=== PATIENT | male | born 2005 | race Caucasian/White ===

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

== ENCOUNTER → 2023-03-09 14:30 | Outpatient (CLI) | payer OTHER, SELFPAY ==
--- NOTE | ~2023-03-09 | XR_ITS ---
XR abdomen/kub 1V DATE: 03/09/2023 14:49 INDICATION: Constipation TECHNIQUE: 2 AP views COMPARISON: 08/12/2022 CT abdomen pelvis FINDINGS: There is moderately prominent of fecal material in the ascending colon and hepatic flexure. No bowel obstruction is evident. No visceromegaly or significant abnormal calcification is detected. IMPRESSION: Nonspecific abdomen Reviewed, dictated and finalized at Location A. Reviewed, dictated and finalized at location A. LEAD BURNER IMPRESSION: Nonspecific abdomen
== END ==
PROVIDERS: PCP Nurse Practitioner Family; Visit Provider Nurse Practitioner Family
DX: K59.00 Constipation, unspecified (principal)
CPT/HCPCS: 74018

== ENCOUNTER 2024-06-13 16:10 | Outpatient (CLI) | payer OTHER, SELFPAY ==
--- OUTSIDE RECORDS SUMMARY | 2024-06-13 16:14 | XMS_ITS | Clinical Summary ---
Author Organization [facility] Address [address] [place] [address] Care Team Providers Care Mortar Mixer Operator Name Role Phone Kelton Mendiola MD Primary Care Provider [phone] Source Comments [facility],non-owned Affiliates and Associated Physician Practices is amultiple site organization consisting of ambulatory clinics and hospital sitesin [place], [place], [place] and [place]. This disclosure is being madepursuant to the Care Everywhere program and may not contain all information available regarding this patient. Last updated 17.[facility] [employer] Social History Tobacco Use Types Packs/Day Years Used Date Smoking Tobacco: Never Assessed Sex and Gender Information Value Date Recorded Sex Assigned at Not on file Gender Identity Not on file Sexual Orientation Not on file Plan of Treatment Health Maintenance Due Date Last Done Comments HIV SCREENING 11/24/2018 HPV VACCINE (1 - Male 3-dose series) 11/24/2018 MENINGOCOCCAL (Group B) VACC INE SHARED DECISION-MAKING (1 of 2 - Standard) 2019 HEPATITIS C SCREENING 11/20/2021 DTAP/TDAP/TD VACCINES (1 - Tdap) 11/24/2022 HEPATITIS B VACCINE (1 of 3 - 19+ 3-dose series) 11/24/2022 COVID-19 VACCINE (1 - 2023-2 5 season) 2023 INFLUENZA VACCINE (#1) 2023 DEPRESSION SCREENING 03/19/2024 ZOSTER VACCINE (1 of 2) 11/24/2053 HIB VACCINE Aged Out No longer eligi ble based on patient's age to complete this topic MENINGOCOCCAL GROUPS A/C/Y/W VACCINE Aged Out No longer eligible b ased on patient's age to complete this topic PNEUMOCOCCAL VACCINE Aged Out No long er eligible based on patient's age to complete this topic Care Teams Mortar Mixer Operator Relationship Specialty Start Date End Date Kelton Mendiola MD [address] [place] [address] PCP - General 04/27/09
[2024-06-13 16:49] LABS: Hematocrit 46.1 % (42.0-52.0); Hemoglobin 15.3 g/dL (14.0-18.0); Mean Corpuscular HGB Conc 33.2 g/dl (32-36); Mean Corpuscular Hemoglobin 28.8 pg (26-34); Mean Corpuscular Volume 86.7 fl (80-100); Mean Platelet Volume 10.3 fl (7.4-10.4); Platelet Count Result 284 k/mm3 (150-375); Red Blood Count 5.32 M/mm3 (4.6-6.20); Red Cell Distribution Width 12.1 % (11.5-14.5); White Blood Count 7.7 K/mm3 (4.5-10.0)
[2024-06-13 17:02] LABS: Alanine Aminotransferase 75 U/L (6-50); Albumin Level 4.9 g/dL (3.5-5.1); Alkaline Phosphatase 72 U/L (38-126); Amylase 63 U/L (30-110); Anion Gap 12 mmol/L (4-12); Aspartate Amino Transferase 33 U/L (17-59); Bilirubin,Total 0.4 mg/dL (0.2-1.3); Blood Urea Nitrogen 21 mg/dL (9-20); Calcium 9.6 mg/dL (8.4-10.2); Carbon Dioxide 24 mmol/L (22-30); Chloride 106 mmol/L (98-107); Estimated Glomerular Filt Rate > 60; Glucose 111 mg/dL (65-110); Lipase 69 U/L (23-300); Sodium 142 mmol/L (137-145)
== END 2024-06-13 16:11 | disposition home or self-care (01) ==
PROVIDERS: PCP Family Medicine; Visit Provider Nurse Practitioner Family
DX: R10.84 Generalized abdominal pain (principal); R19.5 Other fecal abnormalities; K92.0 Hematemesis; R19.4 Change in bowel habit
CPT/HCPCS: 36415; 80048; 80076; 82150; 83690; 85027

== ENCOUNTER 2024-06-30 11:12 | Outpatient (CLI) | payer OTHER, SELFPAY ==
--- NOTE | ~2024-06-30 | US_ITS ---
Limited Abdominal Sonogram: Real-time sonographic imaging of the right upper quadrant was performed. Clinical History: Common bile duct stones Findings: The liver appears echogenic, with no evidence of mass lesion or bile duct dilatation. Main portal vein demonstrates normal direction of flow. The gallbladder is well distended, and appears no rmal with no evidence of gallstone or wall thickening. The common bile duct measures 5 mm. The visua lized pancreas, aorta, and IVC are unremarkable. Impression: Diffuse fatty infiltration of the liver. Reviewed, dictated and finalized at location M. Impression: Diffuse fatty infiltration of the liver.
== END 2024-06-30 11:13 | disposition home or self-care (01) ==
LOC: MICIMG 11:13
PROVIDERS: PCP Family Medicine; Visit Provider Nurse Practitioner Family
DX: R19.5 Other fecal abnormalities (principal); R19.4 Change in bowel habit; K76.0 Fatty (change of) liver, not elsewhere classified
CPT/HCPCS: 76705

== ENCOUNTER 2024-10-23 03:21 | Day surgery (SDC) | payer OTHER, SELFPAY ==
--- OUTSIDE RECORDS SUMMARY | 2024-10-23 03:24 | XMS_ITS | Clinical Summary ---
Author Organization [facility] Address [address] [place] [address] Care Team Providers Care Take Up Supervisor Name Role Phone Kelton Mendiola MD Primary Care Provider [phone] Source Comments [facility],non-owned Affiliates and Associated Physician Practices is amultiple site organization consisting of ambulatory clinics and hospital sitesin [place], [place], [place] and [place]. This disclosure is being madepursuant to the Care Everywhere program and may not contain all information available regarding this patient. 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 Gender Identity Not on file Sexual Orientation [...] VACCINE (1 - 2023-2 5 season) 2023 DEPRESSION SCREENING 03/19/2024 INFLUENZA VACCINE (#1) 2024 ZOSTER VACCINE (1 of 2) 11/24/2053 HIB VACCINE Aged Out No longer eligi ble based on patient's age to complete this topic MENINGOCOCCAL GROUPS A/C/Y/W VACCINE Aged Out No longer eligible b ased on patient's age to complete this topic PNEUMOCOCCAL VACCINE Aged Out No long er eligible based on patient's age to complete this topic Care Teams Take Up Supervisor Relationship Specialty Start Date End Date Kelton Mendiola MD [address] [place] [address] PCP - General 04/27/09
[2024-10-23 07:19] VITALS: BP 145/87; PULSE 99; RESP 18; TEMP 36.8; O2SAT 100
[2024-10-23] MEDS: LACTATED RINGERS 1,000 ML 150 ML IV CONT (07:29)
--- NOTE | 2024-10-23 07:43 | WPDANESEPPF ---
Anes - Initial Pre Proc Eval Procedure: Operation Date: 10/23/24 08:30 Proposed Procedures p Esophagogastroduodenoscopy & Colonoscopy - Ezekiel Salazar MD Date/Time: 10/23/24 07:43 Surgeon: Ezekiel Salazar MD Pre Op Diagnosis: Hematemesis, Functional diarrheaGeneralized abdomi Patient Data Age: 18 Gender: M Height: Weight: 142.1 kg Last Vital Signs Temp 36.8 C 10/23/24 07:19 Pulse 99 10/23/24 07:19 Resp 18 10/23/24 07:19 BP 145/87 H 10/23/24 07:19 Pulse Ox 100 10/23/24 07:19 O2 Del Method Room Air 10/23/24 07:19 Allergies Allergy/AdvReac Type Severity Reaction Status Date / Time No Known Allergies Allergy Verified 10/23/24 07:19 Home Medications ?Medication ?Instructions ?Recorded ?Confirmed ?Type omeprazole 40 mg capsule,delayed 40 mg PO DAILY #30 caps 09/04/24 10/08/24 Rx release Patient hx anesthesia problems: none Family hx anesthesia problems: none Results Review: All pre-operative results and documents have been reviewed as part of the pre-operative evaluation. [facility] Past Medical History Medical History Dyspepsia Diarrhea Abdominal pain Abrasion of arm, left Surgical History Surgical History Hx of tympanostomy tubes Family History Family History Father Hypertension Mother Hypertension Other Cerebrovascular accident Diabetes mellitus Family history of coronary artery disease Family history of lung cancer Family history of malignant neoplasm of breast Social History Social History Smoking status: Never smoker Second hand tobacco smoke exposure: No Alcohol intake: current Drinks per week: 1 Substance use: never Substance use type: does not use Do You Feel Safe in your Home?: Yes Lack of Transportation: No Lack of Food: Never True Current Housing: I Have Housing Concerned About Future Housing: No Difficulty Paying Gas/Electric Bills: No Difficulty Paying for Meds: No Currently Unemployed: No Education: High School Diploma/GED Difficulty w/ Childcare or Family Care: No Living arrangements: with family Occupation/Education: student 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 Gender identity (if verbalized by the patient): Male Spiritual care concerns: No Anes - Eval Final PreProcedure Day of Procedure 10/23/24 07:43 Patient weight: morbidly obese Heart: regular rate and rhythm Lungs: clear to auscultation Airway: Mallampati scale class II Neurological: alert and oriented Last oral intake: >/= 8 hours ASA classification: III Emergent: no Anesthetic plan: proceed Anesthesia type and monitoring: general GIVS and standard monitoring Results Review: All pre-operative results and documents have been reviewed as part of the pre-operative evaluation. Informed Consent: The patient's anesthetic plan and its attendant risks and benefits were discussed with the patient/family/POA. Questions were solicited and answers provided to the satisfaction of the patient/family/POA.
--- NOTE | 2024-10-23 08:21 | PM.HPGS ---
History of Present Illness History of Present Illness Consent: Risks, benefits, and alternatives have been discussed and questions answered. Patient agrees to proceed with procedure. Chief complaint: Hematemesis, Functional diarrheaGeneralized abdomi Narrative: Avel Durant is a 18 year old male here for first egd and colonoscopy, intermittent luq pain, also gerd Review of Systems Review of Systems: All systems reviewed & are unremarkable except as noted in HPI and below PMFSH Past Medical History Medical History Dyspepsia Diarrhea Abdominal pain Abrasion of arm, left Surgical History Surgical History Hx of tympanostomy tubes Family History Family History Father Hypertension Mother Hypertension Other Cerebrovascular accident Diabetes mellitus Family history of coronary artery disease Family history of lung cancer Family history of malignant neoplasm of breast Social History Social History Smoking status: Never smoker Second hand tobacco smoke exposure: No Alcohol intake: current Drinks per week: 1 Substance use: never Substance use type: does not use Do You Feel Safe in your Home?: Yes Lack of Transportation: No Lack of Food: Never True Current Housing: I Have Housing Concerned About Future Housing: No Difficulty Paying Gas/Electric Bills: No Difficulty Paying for Meds: No Currently Unemployed: No Education: High School Diploma/GED Difficulty w/ Childcare or Family Care: No Living arrangements: with family Occupation/Education: student 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 Gender identity (if verbalized by the patient): Male Spiritual care concerns: No Meds Home Medications and Allergies Home Medications ?Medication ?Instructions ?Recorded ?Confirmed ?Type omeprazole 40 mg capsule,delayed 40 mg PO DAILY #30 caps 09/04/24 10/08/24 Rx release Allergies Allergy/AdvReac Type Severity Reaction Status Date / Time No Known Allergies Allergy Verified 10/23/24 07:19 Vital Signs Vital Signs - 24 hr 10/23/24 07:19 Temperature 98.2 F Pulse Rate 99 Respiratory Rate 18 Blood Pressure 145/87 H Pulse Oximetry 100 Oxygen Delivery Room Air Exam Const: General: comfortable and no acute distress HENMT: Face/Nose/Sinus: Normal nares present Eyes: General: appearance normal, both eyes and all related structures Neck: Neck: no JVD Resp: Auscultation: clear to auscultation bilaterally Cardio: Rate: regular rate Rhythm: regular rhythm GI: Inspection: non-distended GI Palp: Yes Soft to palpation Skin: General skin exam: normal color Neuro: General: gait normal Speech: normal speech Extrem: General: normal to inspection Psych: Mental Status: mental status grossly normal Assessment and Plan Assessment and plan (1) Dyspepsia: Code(s): R10.13 - Epigastric pain Status: Acute Assessment and Plan: egd with bx (2) Abdominal pain: Qualifiers: Abdominal location: generalized Qualified Code(s): R10.84 - Generalized abdominal pain Code(s): R10.9 - Unspecified abdominal pain Status: Acute Assessment and Plan: colonoscopy
--- NOTE | 2024-10-23 08:31 | SUR.OPER ---
EGD [id number]. Colonoscopy start time 08.
--- NOTE | 2024-10-23 08:38 | S_PTH ---
PATIENT: Avel Durant LOC: [facility]#:[id number] AGE/SX: 18/M ROOM: RE10/23/[address]: Ezekiel Salazar MD : 2005 BED: DIS: 10/23/2024 SPEC #: [id number] RECD: 10/23/24 09:28 STATUS: MARIBEL EATON #: [id number] MAC: 10/23/24 08:[address]: Ezekiel Salazar DEPT: [facility] Surgical RECD BY: Emily Lee ENTERED: 10/23/24 09:29 SP TYPE: Surgical OTHR DR: Lencho Ruvalcaba MD Tissues: A - Esophageal Biopsy B - Small Bowel Bx C - Gastric Biopsy D - Colon Polypectomy Procedures: Hematoxylin and Eosin Stain Gross and Microscopic Level 4
[2024-10-23 08:40] VITALS: BP 99/41; PULSE 77; RESP 17; O2SAT 97
[2024-10-23 08:50] VITALS: BP 101/48; PULSE 70; RESP 18; O2SAT 100
[2024-10-23 09:00] VITALS: BP 113/56; PULSE 71; RESP 22; O2SAT 100
== END 2024-10-23 09:17 | disposition home or self-care (01) ==
PROVIDERS: PCP Family Medicine; Visit Provider Internal Medicine Gastroenterology
PROC: 0DJ08ZZ Inspection of Upper Intestinal Tract, Via Natural or Artificial Opening Endoscopic (ICD-10-PCS; CPT 45378; principal; 2024-10-23 08:30)
DX: K21.00 Gastro-esophageal reflux disease with esophagitis, without bleeding (principal); K31.89 Other diseases of stomach and duodenum; K51.40 Inflammatory polyps of colon without complications; E66.01 Morbid (severe) obesity due to excess calories; Z68.41 Body mass index [BMI] 40.0-44.9, adult; Z98.890 Other specified postprocedural states; Z80.1 Family history of malignant neoplasm of trachea, bronchus and lung; Z80.3 Family history of malignant neoplasm of breast; Z82.49 Family history of ischemic heart disease and other diseases of the circulatory system
CPT/HCPCS: 43239; 45385; 88305; J2003; J2704; J7120